=== PATIENT | female | born 1990 | race Two or more races ===

== ENCOUNTER 2016-11-02 22:13 | Outpatient (CLI) | payer MEDICAID ==
[~2016-11-02] VITALS: Ht 154.9 cm; Wt 100.0 kg
[2016-11-02 23:09] VITALS: BP 122/73
== END 2016-11-02 23:30 | disposition home or self-care (01) ==
LOC: LDOP 22:13
PROVIDERS: ATTEND Obstetrics & Gynecology
DX: O26.893 Other specified pregnancy related conditions, third trimester (principal); R10.9 Unspecified abdominal pain; Z3A.38 38 weeks gestation of pregnancy
CPT/HCPCS: 59025; 99201; G0463

== ENCOUNTER 2016-11-11 08:17 | Inpatient (IN) | payer MEDICAID ==
[~2016-11-11] VITALS: Ht 154.9 cm; Wt 101.0 kg
[2016-11-11] MEDS ORDERED: OXYTOCIN 30U/ 0.9% NaCL 500ML 500 ML IV ONE (08:50)
[2016-11-11] MEDS ORDERED: OXYTOCIN 30U/ 0.9% NaCL 500ML 500 ML IV PRN (08:50)
[2016-11-11] MEDS ORDERED: NEWBORN KIT ONE (08:56)
[2016-11-11] MEDS ORDERED: OXYTOCIN 30U/ 0.9% NaCL 500ML 500 ML ONE (08:56)
[2016-11-11] MEDS ORDERED: LIDOCAINE 1%, 20ML ONE (08:56)
[2016-11-11] MEDS ORDERED: MISOPROSTOL 200 MCG TABLET ONE (08:56)
[2016-11-11] MEDS ORDERED: FENTANYL PF 100 MCG/2ML IV PRN (09:00)
[2016-11-11] MEDS ORDERED: CALCIUM CARBONATE 500 MG TAB.CHEW PO PRN ×2 (09:00→13:00)
[2016-11-11] MEDS: PLEASE ENTER HEIGHT AND WEIGHT MC SCH ×2 (09:00→17:00)
[2016-11-11] MEDS ORDERED: ONDANSETRON 2MG/ML, 2ML IVPush PRN (09:00)
[2016-11-11] MEDS ORDERED: FENTANYL PF 100 MCG/2ML IVPush PRN (09:00)
[2016-11-11 09:35] LABS: HEMATOCRIT 33.2 % (34.6-47.8); HEMOGLOBIN 10.8 g/dL (11.7-16.4); WHITE BLOOD COUNT 8.8 x10^3/uL (3.4-10)
[2016-11-11] MEDS ORDERED: FENTANYL/BUPIV./NS/PF 250 ML EPIDCONT ONE (10:26)
[2016-11-11] MEDS ORDERED: LIDOCAINE/PF 1.5%-EPI 1:200K, 30ML ONE ×2 (10:26→10:37)
[2016-11-11] MEDS: D5%-LACTATED RINGERS 1,000 ML IV SCH ×2 (11:17→16:50)
[2016-11-11] MEDS: OXYTOCIN 30U/ 0.9% NaCL 500ML 500 ML IV SCH ×2 (12:32→22:32)
[2016-11-11] MEDS: LACTATED RINGERS 1,000 ML IV SCH ×2 (12:45→16:50)
[2016-11-11] MEDS ORDERED: DOCUSATE 100 MG CAPSULE PO PRN (13:00)
[2016-11-11] MEDS ORDERED: MISOPROSTOL 200 MCG TABLET PR PRN (13:00)
[2016-11-11] MEDS ORDERED: ONDANSETRON 2MG/ML, 2ML IV PRN (13:00)
[2016-11-11] MEDS ORDERED: MAGNESIUM HYDROXIDE 8%, 30ML UDC PO PRN (13:00)
[2016-11-11] MEDS ORDERED: DIPH,PERTUSS(ACELL),TET VAC/PF NC IM-VACC PRN (13:00)
[2016-11-11] MEDS ORDERED: RHOGAM FROM BLOOD BANK 1 NOTE EA IM/IV ONE (13:00)
[2016-11-11] MEDS ORDERED: MEASLES,MUMPS&RUBELLA VACC/PF 0.5 ML SQ-VACC PRN (13:00)
[2016-11-11] MEDS ORDERED: ACETAMINOPHEN 325 MG TABLET PO PRN ×2 (13:00)
[2016-11-11] MEDS ORDERED: OXYcodone/APAP 5/325MG TABLET PO PRN ×2 (13:00)
[2016-11-11] MEDS ORDERED: IBUPROFEN 600 MG TABLET ONE (15:25)
[2016-11-11] MEDS: IBUPROFEN 600 MG TABLET PO PRN (15:30)
[2016-11-11 17:20] VITALS: BP 117/74
[2016-11-11 19:40] VITALS: BP 112/72
[2016-11-11] MEDS ORDERED: FENTANYL/BUPIV./NS/PF 250 ML EPIDCONT SCH (19:50)
[2016-11-11] MEDS ORDERED: LACTATED RINGERS 1,000 ML IV SCH (19:50)
[2016-11-11] MEDS ORDERED: NALOXONE 0.4 MG/ML, 1ML IVPush PRN (20:00)
[2016-11-11] MEDS ORDERED: EPHEDRINE 50 MG/ML, 1ML IVPush PRN (20:00)
[2016-11-11] MEDS ORDERED: LACTATED RINGERS 1,000 ML IVBOLUS PRN (20:00)
[2016-11-11 21:57] LABS: HEMATOCRIT 34.1 % (34.6-47.8); HEMOGLOBIN 11.1 g/dL (11.7-16.4); WHITE BLOOD COUNT 13.1 x10^3/uL (3.4-10)
[2016-11-11 23:55] VITALS: BP 142/84
[2016-11-12] MEDS: IBUPROFEN 600 MG TABLET PO PRN
[2016-11-12 04:30] VITALS: BP 132/85
[2016-11-12 07:45] VITALS: BP 125/77
[2016-11-12] MEDS: OXYTOCIN 30U/ 0.9% NaCL 500ML 500 ML IV SCH (08:32)
[2016-11-12] MEDS ORDERED: PRENATAL VIT/IRON/FA 1 EACH TABLET PO SCH (09:00)
[2016-11-12] MEDS ORDERED: IBUP-1222 PO (12:52)
== END 2016-11-12 13:32 | disposition home or self-care (01) | DRG 775 ==
LOC: LDOP 08:17 → LDIP 08:23 → 2NW 16:39
PROVIDERS: ADMIT Obstetrics & Gynecology; ATTEND Obstetrics & Gynecology
PROC: 10E0XZZ Delivery of Products of Conception, External Approach (ICD-10-PCS; principal; 2016-11-11)
PROC: 0UQMXZZ Repair Vulva, External Approach (ICD-10-PCS; 2016-11-11)
PROC: 3E0S3CZ (ICD-10-PCS; 2016-11-11)
PROC: 00HU33Z Insertion of Infusion Device into Spinal Canal, Percutaneous Approach (ICD-10-PCS; 2016-11-11)
DX: O70.0 First degree perineal laceration during delivery (principal); Z37.0 Single live birth; Z3A.39 39 weeks gestation of pregnancy
CPT/HCPCS: 36415; 85025; 86850; 86900; J3490; J2590; J3010; J7120; J7121